=== PATIENT | male | born 1995 | race Caucasian/White ===

== ENCOUNTER 2022-09-19 14:25 | Emergency (ER) | payer OTHER ==
[2022-09-19] MEDS ORDERED: SODIUM CHLORIDE 0.9% 1,000 ML IV STA (14:38)
[2022-09-19] MEDS ORDERED: fentaNYL 100 MCG/2 ML VIAL IVP PRN (14:38)
[2022-09-19 14:47] LABS: BASOPHILS # (AUTO) 0.1 10^3/uL (0.0-0.1); BASOPHILS % (AUTO) 0.3 %; EOSINOPHILS # (AUTO) 0.1 10^3/uL (0.0-0.7); EOSINOPHILS % (AUTO) 0.6 %; HCT - HEMATOCRIT 42.4 % (42.0-52.0); HGB - HEMOGLOBIN 14.1 g/dL (14.0-18.0); LYMPHOCYTES # (AUTO) 1.5 10^3/uL (1.5-3.5); LYMPHOCYTES % (AUTO) 7.7 %; MEAN CORPUSCULAR HEMOGLOBIN 29.9 pg (27.0-31.0); MEAN CORPUSCULAR HGB CONC 33.3 g/dL (32.0-36.0); MEAN PLATELET VOLUME 8.2 fL (7.4-11.4); MONOCYTES # (AUTO) 1.3 10^3/uL (0.0-1.0); MONOCYTES % (AUTO) 6.8 %; NEUTROPHILS # (AUTO) 16.4 10^3/uL (1.5-6.6); NEUTROPHILS % (AUTO) 83.9 %; PLT - PLATELET COUNT 322 10^3/uL (130-450); RED BLOOD COUNT 4.71 10^6/uL (4.70-6.10); RED CELL DISTRIBUTION WIDTH 12.6 % (12.0-15.0); WHITE BLOOD COUNT 19.5 x10^3/uL (4.8-10.8)
[2022-09-19] MEDS ORDERED: iohexoL-300 100 ML VIAL ONE (14:49)
[2022-09-19 14:53] LABS: INR 1.1 (0.8-1.2); PT - PROTHROMBIN TIME 12.4 secs (9.9-12.6)
[2022-09-19 14:59] LABS: ALBUMIN 4.4 g/dL (3.2-5.5); ALBUMIN/GLOBULIN RATIO 1.4 (1.0-2.2); ALKALINE PHOSPHATASE 38 IU/L (42-121); ALT ALANINE AMINOTRANSFERASE 43 IU/L (10-60); AST ASPARTATE AMINOTRANSFERASE 56 IU/L (10-42); BILIRUBIN,TOTAL 0.8 mg/dL (0.2-1.0); BUN - BLOOD UREA NITROGEN 18 mg/dL (6-20); CALCIUM 9.1 mg/dL (8.5-10.3); CARBON DIOXIDE - CO2 24 mmol/L (21-32); CHLORIDE 105 mmol/L (101-111); CREATININE 1.1 mg/dL (0.6-1.2); ETOH - ETHANOL < 5.0 mg/dL; GFR - MDRD 80 (>89); GLUCOSE 128 mg/dL (70-100); LIPASE 32 U/L (22-51); POTASSIUM 3.1 mmol/L (3.5-5.0); SODIUM 139 mmol/L (135-145); TOTAL PROTEIN 7.6 g/dL (6.7-8.2)
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
--- NOTE | 2022-09-19 15:17 | CT Report ---
PROCEDURE: CERVICAL SPINE WO INDICATIONS: trauma TECHNIQUE: Noncontrast 3 mm thick sections acquired from the skull base to the T4 level. Sagittal and coronal r eformats were then constructed. For radiation dose reduction, the following was used: automated exp osure control, adjustment of mA and/or kV according to patient size. COMPARISON: None. FINDINGS: Image quality: Excellent. Bones: No fractures or dislocations. Visualized superior ribs are intact. Soft tissues: Prevertebral soft tissues are normal in thickness. No paravertebral hematomas. No ap ical pneumothoraces. IMPRESSION: No evidence acute cervical fracture or dislocation. Reviewed by: Cyril Maxwell MD on 09/19/2022 3:16 PM PDT Approved by: Cyril Maxwell MD on 09/19/2022 3:16 PM PDT Station ID: [id number]
--- NOTE | 2022-09-19 15:20 | XRAY Report ---
PROCEDURE: Chest 1 View X-Ray INDICATIONS: chest pain TECHNIQUE: One view of the chest was acquired. COMPARISON: None FINDINGS: Surgical changes and devices: None. Lungs and pleura: No pleural effusions or pneumothorax. Lungs are clear. Mediastinum: Mediastinal contours appear normal. Heart size is normal. Bones and chest wall: There is asymmetric vertebral body height loss involving the right side of the L3 vertebral body. No suspicious bony lesions. Overlying soft tissues appear unremarkable. IMPRESSION: Chest without acute cardiopulmonary abnormalities. Asymmetric vertebral body height loss involving the right side of the L3 vertebral body possibly repr esenting a compression fracture given history of trauma. Consider dedicated radiographic evaluation o f the lumbar spine if there is focal pain in the region. Reviewed by: Shay Maldonado MD on 09/19/2022 3:19 PM PDT Approved by: Shay Maldonado MD on 09/19/2022 3:19 PM PDT Station ID: [id number]
--- NOTE | 2022-09-19 15:25 | XRAY Report ---
PROCEDURE: Elbow 3 View LT INDICATIONS: Trauma TECHNIQUE: 3 views of the elbow were acquired. COMPARISON: None. FINDINGS: Bones: Moderately comminuted fractures of the proximal left ulna with intra-articular extension into the elbow joint. There is distraction of the main fracture fragments. Radiocapitellar alignment is m aintained. Soft tissues: Small elbow joint effusion. No suspicious soft tissue calcifications or masses. Tiny flecks of radiopaque densities noted over the dorsal aspect of the proximal left elbow with associat ed soft tissue swelling. These are likely radiopaque soft tissue foreign bodies. IMPRESSION: Moderately comminuted, intra-articular fracture of the proximal left ulna involving the humero-ulnar joint with mild distraction of the main fracture fragments and associated joint effusion. The radioca pitellar joint appears to be intact. Soft tissue swelling and defect overlying the dorsal aspect of the left elbow with suspected radiopaq ue soft tissue foreign bodies. Reviewed by: Shay Maldonado MD on 09/19/2022 3:24 PM PDT Approved by: Shay Maldonado MD on 09/19/2022 3:24 PM PDT Station ID: [id number]
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
--- NOTE | 2022-09-19 15:42 | CT Report ---
PROCEDURE: CHEST W INDICATIONS: Trauma CONTRAST: 100ml omni 300 TECHNIQUE: After the administration of intravenous contrast, 1 mm axial images were acquired from the pulmonary apices through the posterior costophrenic angles. Axial 5 mm soft tissue kernel reconstructions were performed as well as 8 mm axial MIP and coronal and sagittal 5 mm reformations. For radiation dose reduction, the following was used: automated exposure control, adjustment of mA and/or kV according to patient size. COMPARISON: None. FINDINGS: Image quality: Diagnostic. Patient motion artifact degrades image quality. Lungs and pleura: Patchy groundglass predominantly peripheral opacities noted in the inferior right u pper lobe, right middle lobe, and posterior lateral right lower lobe. No pleural effusions. No pneum othorax. No suspicious pulmonary nodules which require follow up. No septal thickening or nodularity. Mediastinum: Heart size is normal. No pericardial effusions. No mediastinal adenopathy by size criter ia. No large vessel abnormality. No CT evidence for acute traumatic injury to the mediastinal great v essels. No perivascular inflammatory changes. Chest wall and lower neck: Thyroid is unremarkable. No axillary or supraclavicular adenopathy by size . No significant soft tissue contusions noted in the chest wall on either side. Bones: No aggressive osseous abnormality. No definite rib fracture identified although moderate respi ratory motion artifact limits evaluation of the ribs. There is a nondisplaced mid sternal fracture be st seen on sagittal image 36/series 14. No substernal fluid collection. Upper Abdomen: Visualized portions of the upper abdomen include the liver, pancreas, spleen, and bila teral kidneys. No evidence suggest acute traumatic injury to the solid organs. Visualized portions of the imaged bowel and stomach appear unremarkable without evidence for acute traumatic injury. No abn ormal fluid collections identified in the upper abdomen. There is an acute anterior compression fracture of the L3 vertebral body with approximately 20% loss of the anterior vertebral body height. No retropulsion of fracture fragments. IMPRESSION: 1. Patchy groundglass opacities of the right upper, middle, and lower lobes likely representing pulmo nary contusions. Infectious or inflammatory process not excluded. Pulmonary hemorrhage may have a sim ilar appearance. No pleural effusion or pneumothorax. 2. Nondisplaced midsternal fracture without substernal fluid collection or evidence for acute traumat ic injury to the underlying mediastinal structures or heart. No evidence to suggest traumatic injury to the mediastinal great vessels. 3. Acute anterior compression fracture of the L3 vertebral body with approximately 20% loss of the an terior vertebral body height. No retropulsion of fracture fragments into the spinal canal. 4. Image upper abdomen demonstrates no acute traumatic injuries to the liver, spleen, pancreas, or bi lateral kidneys. Reviewed by: Shay Maldonado MD on 09/19/2022 3:40 PM PDT Approved by: Shay Maldonado MD on 09/19/2022 3:40 PM PDT Station ID: [id number]
--- NOTE | 2022-09-19 15:45 | XRAY Report ---
PROCEDURE: Elbow 3 View RT INDICATIONS: trauma TECHNIQUE: 3 views of the elbow were acquired. COMPARISON: None. FINDINGS: Bones: No fractures or dislocations. No suspicious bony lesions. Soft tissues: No effusion. No suspicious soft tissue calcifications or masses. IMPRESSION: Right elbow without definite fracture. Normal alignment. If there is persistent clinical concern for a radiographically occult fracture, recommend immobilizat ion and repeat imaging in 10 to 14 days. Reviewed by: Shay Maldonado MD on 09/19/2022 3:44 PM PDT Approved by: Shay Maldonado MD on 09/19/2022 3:44 PM PDT Station ID: [id number]
[2022-09-19 16:17] VITALS: BP 130/66
--- NOTE | 2022-09-19 16:46 | CT Report ---
PROCEDURE: ABDOMEN/PELVIS W INDICATIONS: trama TECHNIQUE: After the administration of weight appropriate dose of intravenous contrast, 5 mm thick sections acqu ired from the diaphragms to the symphysis. 5 mm thick coronal and sagittal reformats were acquired. For radiation dose reduction, the following was used: automated exposure control, adjustment of mA and/or kV according to patient size. COMPARISON: None FINDINGS: Image quality: Diagnostic. Lung bases and heart: Patchy opacities of the right middle and right lower lobe mostly peripheral in distribution. Bibasilar atelectasis. Visualized portions of the inferior heart appear unremarkable; n o pericardial effusion. Liver: Liver appears unremarkable without definite evidence for acute traumatic injury. Gallbladder and biliary tree: Gallbladder appears unremarkable. No biliary ductal dilatation. Spleen: Spleen appears unremarkable without evidence to suggest acute traumatic injury. Pancreas: Pancreas appears homogeneous in enhancement. No findings to suggest acute traumatic injury. No peripancreatic inflammatory changes. Adrenals: Unremarkable. Kidneys and ureters: Kidneys appear unremarkable without evidence for acute traumatic injury. No evid ence for hydronephrosis or significant perinephric stranding. Visualized ureters are normal in course and caliber. Bowel and peritoneum: No bowel distension. There is nonspecific mild mesenteric stranding involving t he mid right abdomen just below the level of the umbilicus (images 45 through 50/series 10). Similar, more pronounced findings noted in the left mid and lower abdomen seen on axial images 55 through 71/ series 10. Trace amount of left paracolic fluid. No pathologic amount of abdominal or pelvic free flu id is visualized. Lymph nodes: No central or retroperitoneal adenopathy. Vessels: Unremarkable. PELVIS Reproductive organs: Unremarkable. Bladder: Unremarkable. Lymph nodes: Unremarkable. Bones: No aggressive osseous abnormality. There is an acute anterior compression fracture of the L3 v ertebral body predominantly involving the superior endplate of L3. There is approximately 20% loss of the anterior vertebral body height. No other fractures identified. Other: None. IMPRESSION: 1. Nonspecific mesenteric stranding involving the mid right abdomen as well as the left mid and lower abdomen with small amount of left pericolic fluid. No definite evidence for acute traumatic injuries to the solid organs of the abdomen or pelvis. No definite injury identified in the hollow organs. Re commend clinical correlation and short interval follow-up imaging as needed. 2. Acute anterior compression fracture involving the superior endplate of L3 with approximately 20% l oss of the anterior vertebral body height. No retropulsion of fracture fragments. No significant spin al canal stenosis. 3. Patchy airspace opacities of the right middle and lower lobes favored to represent pulmonary contu shane as detailed in dedicated CT of the chest. Infectious or inflammatory process not excluded if cli nically appropriate. Pulmonary hemorrhage may have a similar appearance. Reviewed by: Shay Maldonado MD on 09/19/2022 4:45 PM PDT Approved by: Shay Maldonado MD on 09/19/2022 4:45 PM PDT Station ID: [id number]
[2022-09-19] MEDS ORDERED: iohexoL-300 100 ML VIAL IVP ONE (17:56)
== END 2022-09-19 16:44 | disposition short-term general hospital (02) ==
LOC: ED 14:25
DX: S27.322A Contusion of lung, bilateral, initial encounter (principal); S42.402A Unspecified fracture of lower end of left humerus, initial encounter for closed fracture; S22.20XA Unspecified fracture of sternum, initial encounter for closed fracture; S32.030A Wedge compression fracture of third lumbar vertebra, initial encounter for closed fracture; R41.82 Altered mental status, unspecified; V86.96XA Unspecified occupant of dirt bike or motor/cross bike injured in nontraffic accident, initial encounter; Z20.822 Contact with and (suspected) exposure to COVID-19
CPT/HCPCS: 36415; 70450; 71045; 71260; 72125; 73080; 74177; 80053; 80320; 83605; 83690; 85025; 85610; 87635; 96361; 96374; 99291; G0390; Q9967